=== PATIENT | male | born 1990 | race Caucasian/White ===

== ENCOUNTER 2021-03-03 08:04 | Outpatient (CLI) | payer OTHER, SELFPAY ==
[2021-03-03 10:26] LABS: ALB/GLOB Ratio 1.1 RATIO (0.9-2.4); AST(SGOT) 23 U/L (15-37); Alanine Aminotransfer ALT/SGPT 35 U/L (16-61); Alkaline Phosphatase 74 U/L (45-117); Anion Gap 7 (5-15); BUN 13 mg/dL (7-18); BUN/Creat Ratio 12.3 RATIO (10-20); Calcium,Total 8.6 mg/dL (8.5-10.1); Chloride 107 mmol/L (98-107); Cholesterol 205 mg/dL (200); Creatinine, Serum 1.06 mg/dL (0.70-1.30); EST Glomerular Filtration Rate 86 mL/min (>60); Est Glom Filt Rate - Afr Amer 104 mL/min (>60); Globulin 3.5 g/dL (2.2-4.2); Glucose 96 mg/dL (74-106); High Density Lipoprotein 30 mg/dL; Potassium 3.8 mmol/L (3.5-5.1); Protein, Total 7.5 g/dL (6.4-8.2); Sodium Level 139 mmol/L (136-145); Triglycerides 160 mg/dL; Very Low Density Lipoprotein 32 mg/dL (5-40)
== END 2021-03-03 23:59 | disposition home or self-care (01) ==
PROVIDERS: PCP Family Medicine; Referring Provider Family Medicine; Visit Provider Family Medicine
DX: Z13.220 Encounter for screening for lipoid disorders (principal)
CPT/HCPCS: 36415; 80053; 80061

== ENCOUNTER → 2025-01-29 | Outpatient (CLI) | payer OTHER, SELFPAY ==
--- NOTE | 2025-01-29 15:00 | VAS_PTH ---
PATIENT: MACARENA GONZALEZ LOC: [facility] U#:[id number] AGE/SX: 34/M ROOM: RE01/29/[address]: Dr. Mickey Yuan MD : 1990 BED: DIS: 01/29/2025 SPEC #: [id number] RECD: 01/29/25 15:13 STATUS: BECCA RESymone #: [id number] DENY: 01/29/25 15:[address]: Mickey Yuan DEPT: SURGICAL PATHOLOGY RECD BY: Cecilio Ryan ENTERED: 02/01/25 08:21 SP TYPE: VAS OTHR DR: Danelle Juárez MD Tissues: A - Vas deferens, NOS B - Vas deferens, NOS Procedures: Surgery Specimen Level II HEADER OPERATION: Bilateral partial vasectomy PRE-OP DIAGNOSIS: Sterilization TISSUE SUBMITTED: A- Right vas deferens, B- Left vas deferens MICROSCOPIC DIAGNOSIS A. Vas deferens, right, partial vasectomy: - Complete luminal section confirmed. B. Vas deferens, left, partial vasectomy: - Complete luminal section confirmed. MICROSCOPIC DESCRIPTION Slides are reviewed. GROSS DESCRIPTION Received in 2 formalin containers labeled with the patient's name and date of . Designated as: A. R vas deferens is a potter-white, rubbery cylindrical portion of tissue, 0.8 cm in length by 0.3 cm in diameter. The specimen is inked green and serially sectioned. Entirely submitted in 1 cassette. B. L vas deferens is a potter-white, rubbery cylindrical portion of tissue, 0.9 cm in length by 0.3 cm in diameter. The specimen is inked orange and serially sectioned. Entirely submitted in 1 cassette. DC 01/29/2025 CPT:15856l3
== END | disposition home or self-care (01) ==
LOC: LABSPEC 15:44
PROVIDERS: PCP Family Medicine; Referring Provider Surgery; Visit Provider Surgery
DX: Z30.2 Encounter for sterilization (principal)
CPT/HCPCS: 88302